=== PATIENT | female | born 1980 | race Caucasian/White ===

== ENCOUNTER 2019-06-21 06:52 | Inpatient (IN) | payer OTHER ==
[2019-06-21] MEDS ORDERED: Penicillin G Potassium IV* 5,000,000 UNITS in NS 0.9% 100 ML* 100 ML IVPB ONE (07:13)
[2019-06-21] MEDS ORDERED: Lactated Ringers 1000 ML Bag* 1,000 ML IV ONE ×2 (07:13→09:22)
[2019-06-21] MEDS ORDERED: Buffered Lidocaine 1% SYRIN* 1 ML/SYRINGE INTRADERM ONE (07:13)
[2019-06-21 07:32] LABS: ABS Basophils 0.1 10^3/ul (0-0.2); ABS Eosinophils 0.2 10^3/ul (0-0.6); ABS Monocytes 0.8 10^3/ul (0-0.8); ABS Neutrophils 16.8 10^3/ul (1.5-7.7); Eosinophil % 0.9 %; Hematocrit 35 % (35-47); Hemoglobin 12.1 g/dL (12.0-16.0); Lymphocyte % 10.2 %; Mean Corpuscular HGB Conc 34 g/dL (31-36); Mean Corpuscular Hemoglobin 29 pg (27-31); Mean Corpuscular Volume 85 fL (80-97); Mean Platelet Volume 8.6 fL (7.4-10.4); Platelet Count 261 10^3/uL (150-450); Red Blood Count 4.14 10^6 /uL (3.70-4.87); Red Cell Distribution Width 14 % (10-15)
[2019-06-21] MEDS ORDERED: OBEPIDURAL* 250 ML EPIDURAL ONE (07:32)
--- NOTE | 2019-06-21 07:46 | HP ---
General Information - Reason for Visit Spontaneous rupture of membranes - General Information Maternal Age: 38 Grav: 3 Para: 2 SAB: 0 IEA: 0 Estimated Due Date: 06/23/19 Determined By: LMP Gestational Age in Weeks/Days: 39 5/7 Maternal Blood Type and Rh: A Positive - Results this Serology/RPR Result: Non-Reactive Rubella Result: Immune HBsAg Result: Negative HIV Result: Negative GBS Culture Result: Positive Past Medical History Delivery History: Hx Uncomplicated Vaginal Delivery Pertinent Past Medical History: See Records Past Medical History Comment: PCOS, ulcers, anemia, back pain, HSV - genital Pertinent Past Surgical History: See Records Past Surgical History Comment: Tonsillectomy, tummy tuck, gallbladder removal, brachioplasty, back lift Pertinent Family History: Non-Contributory - Antepartal Records Antepartal Records: Reviewed, Complicated by: - GBS positive, HSV on prophylaxis, AMA age 38 at delivery Review of Systems Constitutional: Uncomfortable CV Complaint: No Respiratory: Shortness of Breath: No Gastrointestinal: Normal Bowel Movement, Nausea, Vomiting Genitourinary: Leaking Fluid, No Dysuria, No Bleeding Musculoskeletal: No Epigastric Pain, Back Pain, Contractions Neurological: No Headache, No Visual Changes Movement: Normal Exam Allergies/Adverse Reactions: Allergies No Known Allergies Allergy (Verified 06/21/19 00:04) B/P: 139/87, P: 73, R: 20 - Measurements Height: 5 ft 6 in Weight: 231 lb Body Mass Index (BMI): 37.3 Pre- Weight: 190 lb - Exam Breast: Breast Exam Deferred CVA: No CVA Tenderness Extremities: No Edema Heart: Normal Rhythm/Heart Sounds HEENT: No Significant Findings Lungs: Clear Bilaterally Reflexes: DTR 2+ Thyroid: No Thyromegaly - Abdominal Exam Abdomen Exam: Non-Tender, Fundal Height Consistent with Dates - Ultrasound/Biophysical Profile Ultrasound Status: Not Done Targeted Exam Findings See L&D Outpatient Visit Provider Note for Findings: N/A Estimated Weight: 8.5 lb by [facility]annabelle Cervical Exam: 5cm Effacement: 90% Station: -1 Presenting Part: Vertex Membrane Status: SROM Bleeding/Discharge: Bloody Show EFM Findings - External Monitor Findings Baseline Heart Rate: 135 External Monitor Findings: Accelerations Present, No Pattern of Variable or Late Decelerations, Variability Moderate, Baseline Stable Contractions: Regular, Moderate, Strong Contraction Frequency: 2-3 min Assessment/Plan - Assessment A: IUP at 39 5/7 weeks Category I FHR, no evidence of metabolic acidemia GBS positive Active labor P: Dr. Ahn at bedside for epidural placement Continue GBS prophylaxis Reassess PRN Anticipate SVB - Obstetrical Risk Factors Obstetrical Risk Factors: GBS Positive, Obesity - Plan Plan: Admit - Anticipate Vaginal Delivery - Date/Time of Admission Date of Admission: 06/21/19 Time of Admission: 07:00
[2019-06-21] MEDS ORDERED: Lactated Ringers 1000 ML Bag* 1,000 ML IV SCH ×3 (08:00→10:00)
[2019-06-21] MEDS: Phenylephrine 40 MCG/ML SYRINGE IV PUSH PRN ×4 (08:17→08:25)
[2019-06-21] MEDS ORDERED: Oxytocin in LR* 20 UNITS/1,000 ML BAG IVPB ONE (08:48)
[2019-06-21] MEDS ORDERED: Witch Hazel PAD* JAR TOPICAL PRN (09:03)
[2019-06-21] MEDS ORDERED: Acetaminophen TAB* 325 MG PO PRN (09:03)
[2019-06-21] MEDS ORDERED: Glycerin ADULT SUPP PR PRN (09:03)
[2019-06-21] MEDS ORDERED: Dibucaine 1% 28.35 GM TUBE PR PRN (09:03)
--- NOTE | 2019-06-21 09:10 | PROCNOTE ---
[facility] OB: Delivery Note - Delivery A Date of : 06/21/19 Time of : 08:30 Jay Sex: Female Weight at : 8 lb 1 oz Score 1 Minute: 8 Score 5 Minutes: 9 Gestational Age in Weeks and Days at Delivery: 39 Weeks and 5 Days Delivery Method: Spontaneous Vaginal Labor: Spontaneous Did Patient attempt ?: N/A, No Previous Amniotic Fluid: Meconium Estimated Blood Loss: 400 Anesthesia/Analgesia: CEI for Labor Delivered By: Luz Hdez Nursery Level of Nursery: Regular/Bedside - Perineum Perineal Injury: None/Intact - Events Delivery Events of Note: Pitocin Only After Delivery, Partial Course of Antibiotics Delivery Events of Note Comment: category 2 tracing - Additional Delivery Notes Additional Delivery Notes: Normal spontaneous vertex delivery of live female, 8lbs, 1oz and Apgars 8/9. Delivered direct OP, nuchal cordx1, terminal meconium. Body delivered without difficulty. Baby placed on mothers abdomen. Cord clamped and cut by delivering provider after pulsations ceased. Placenta delivered spontaneously via marrero, appears intact, 3vc. Pitocin given via IVPB for active management of 3rd stage. Perineum and vagina inspected - noted to be intact. EBL 400mL. Mom and baby stable at time of note. Baby attempting to breastfeed.
[2019-06-21] MEDS ORDERED: Sodium Citrate/Citric Acid* 15 ML UDC PO PRN (09:22)
[2019-06-21] MEDS ORDERED: Phenylephrine 40 MCG/ML SYRINGE IV PUSH PRN (09:22)
[2019-06-21] MEDS ORDERED: Lactated Ringers 1000 ML Bag* 500 ML IV PRN ×2 (09:22)
[2019-06-21] MEDS ORDERED: Famotidine TAB* 20 MG PO PRN (09:22)
[2019-06-21] MEDS ORDERED: OBEPIDURAL* 250 ML EPIDURAL SCH (10:00)
[2019-06-21] MEDS ORDERED: Oxytocin in LR* 20 UNITS/1,000 ML BAG IVPB SCH (10:00)
[2019-06-21 10:02] LABS: Urine Benzodiazepine Screen None Detected (None Detect); Urine Opiates Screen None Detected (None Detect)
[2019-06-21] MEDS ORDERED: Penicillin G Potassium IV* 3,000,000 UNITS in NS 0.9% 100 ML* 100 ML IVPB SCH (11:30)
[2019-06-21] MEDS ORDERED: Simethicone TAB* 80 MG TAB.CHEW PO SCH (12:30)
[2019-06-21] MEDS ORDERED: Phenylephrine 40 MCG/ML SYRINGE ONE (14:15)
[2019-06-21] MEDS: Ibuprofen TAB* 600 MG PO SCH (15:34)
[2019-06-21] MEDS: Docusate CAP* 100 MG PO SCH ×2 (15:34→20:03)
[2019-06-22] MEDS: Ibuprofen TAB* 600 MG PO SCH ×5 (01:14→20:34)
[2019-06-22 06:49] LABS: ABS Basophils 0.1 10^3/ul (0-0.2); ABS Eosinophils 0.2 10^3/ul (0-0.6); ABS Lymphocytes 2.3 10^3/ul (1.0-4.8); ABS Monocytes 0.8 10^3/ul (0-0.8); ABS Neutrophils 10.2 10^3/ul (1.5-7.7); Eosinophil % 1.3 %; Hematocrit 26 % (35-47); Hemoglobin 8.8 g/dL (12.0-16.0); Lymphocyte % 16.7 %; Mean Corpuscular HGB Conc 34 g/dL (31-36); Mean Corpuscular Hemoglobin 29 pg (27-31); Mean Corpuscular Volume 86 fL (80-97); Mean Platelet Volume 8.2 fL (7.4-10.4); Platelet Count 224 10^3/uL (150-450); Red Cell Distribution Width 15 % (10-15); White Blood Count 13.5 10^3/uL (3.5-10.8)
[2019-06-22] MEDS: Docusate CAP* 100 MG PO SCH ×3 (08:37→20:33)
[2019-06-22] MEDS: Sertraline* 100 MG TAB PO SCH (08:37)
[2019-06-22] MEDS: Ferrous Gluconate TAB* 324 MG TAB PO SCH ×2 (08:38→20:33)
[2019-06-23] MEDS: Ibuprofen TAB* 600 MG PO SCH (06:18)
[2019-06-23 07:29] VITALS: BP 135/62
[2019-06-23] MEDS: Ferrous Gluconate TAB* 324 MG TAB PO SCH (09:30)
[2019-06-23] MEDS: Docusate CAP* 100 MG PO SCH (09:30)
[2019-06-23] MEDS: Sertraline* 100 MG TAB PO SCH (09:30)
== END 2019-06-23 10:32 | disposition home or self-care (01) | DRG 806 ==
LOC: MCHOBOUT 06:52 → MCHOB 07:12
PROVIDERS: ADMIT Midwife; ATTEND Midwife
PROC: 10E0XZZ Delivery of Products of Conception, External Approach (ICD-10-PCS; principal; 2019-06-21)
PROC: 4A1HXCZ Monitoring of Products of Conception, Cardiac Rate, External Approach (ICD-10-PCS; 2019-06-21)
DX: O99.824 Streptococcus B carrier state complicating childbirth (principal); O98.52 Other viral diseases complicating childbirth; Z37.0 Single live birth; O99.214 Obesity complicating childbirth; O69.81X0 Labor and delivery complicated by cord around neck, without compression, not applicable or unspecified; O77.0 Labor and delivery complicated by meconium in amniotic fluid; O99.03 Anemia complicating the puerperium; A60.00 Herpesviral infection of urogenital system, unspecified; Z79.899 Other long term (current) drug therapy; Z3A.39 39 weeks gestation of pregnancy
CPT/HCPCS: 36415; 80307; 85025; 86850; 86900; 86901; A9270-GY; J2540